=== PATIENT | male | born 1960 ===

== ENCOUNTER 2020-08-09 13:51 | Inpatient (IN) | payer MEDICARE, OTHER ==
[~2020-08-09] VITALS: Ht 172.7 cm; Wt 79.8 kg
[2020-08-09] MEDS ORDERED: MAGNESIUM HYDROXIDE 30 ML LIQUID UDC PO PRN (16:30)
[2020-08-09] MEDS ORDERED: ACETAMINOPHEN 325 MG TABLET PO PRN (16:30)
[2020-08-09] MEDS ORDERED: LORAZEPAM 1 MG TABLET PO PRN (16:30)
[2020-08-09] MEDS ORDERED: TEMAZEPAM 7.5 MG CAPSULE PO PRN (16:30)
[2020-08-09] MEDS ORDERED: MAG HYDROX/AL HYDROX/SIMETH 30 ML LIQUID UDC PO PRN (16:30)
[2020-08-09 16:37] VITALS: BP 129/92
[2020-08-09 20:37] VITALS: BP 122/86
[2020-08-10 07:30] VITALS: BP 117/76
[2020-08-10 15:08] VITALS: BP 119/71
[2020-08-10 15:19] LABS: BASOPHILS % (AUTO) 0.6 % (0.0-2.0); EOSINOPHILS # (AUTO) 0.1 K/uL (0.0-0.7); EOSINOPHILS % (AUTO) 1.3 % (0.0-7.0); HEMATOCRIT 45.9 % (36.7-47.1); HEMOGLOBIN 15.6 g/dL (12.5-16.3); LYMPHOCYTES # (AUTO) 2.2 K/uL (20.0-40.0); LYMPHOCYTES % (AUTO) 30.8 % (20.5-51.5); MEAN CORPUSCULAR HEMOGLOBIN 29.4 uug (23.8-33.4); MEAN CORPUSCULAR HGB CONC 34 g/dL (32.5-36.3); MEAN CORPUSCULAR VOLUME 86.6 fL (73.0-96.2); MONOCYTES # (AUTO) 0.6 K/uL (2.0-10.0); MONOCYTES % (AUTO) 8.7 % (0.0-11.0); NEUTROPHILS # (AUTO) 4.1 K/uL (1.8-8.9); NEUTROPHILS % (AUTO) 58.6 % (38.5-71.5); PLATELET COUNT (AUTO) 291 K/uL (152-348); RED BLOOD CELL COUNT(AUTO) 5.31 MIL/uL (4.06-5.63); WHITE BLOOD COUNT (AUTO) 7.1 K/uL (3.6-10.2)
[2020-08-10 15:33] LABS: BILIRUBIN,TOTAL 0.4 mg/dL (0.2-1.0); CREATININE 1.1 mg/dL (0.6-1.3); MAGNESIUM 2.1 mg/dL (1.8-2.4); PHOSPHOROUS 4.3 mg/dL (2.5-4.9); POTASSIUM 4.1 mmol/L (3.5-5.1); TOTAL PROTEIN, SERUM 8.1 g/dL (6.4-8.2)
[2020-08-10 20:21] VITALS: BP 143/81
[2020-08-11 07:30] VITALS: BP 106/67
[2020-08-11] MEDS: DIVALPROEX 500 MG TABLET.DR PO SCH ×3 (08:31→16:56)
[2020-08-11] MEDS ORDERED: SERTRALINE HCL 50 MG TABLET PO SCH (09:00)
[2020-08-11] MEDS ORDERED: DIVALPROEX 250 MG TABLET.DR PO SCH (09:00)
[2020-08-11 16:00] VITALS: BP 109/60
[2020-08-11 20:10] VITALS: BP 102/63
[2020-08-12 07:30] VITALS: BP 133/77
[2020-08-12] MEDS: DIVALPROEX 500 MG TABLET.DR PO SCH ×3 (09:04→17:44)
[2020-08-12] MEDS: SERTRALINE HCL 100 MG TABLET PO SCH (09:04)
[2020-08-12 17:06] VITALS: BP 131/79
[2020-08-12 20:11] VITALS: BP 115/72
[2020-08-13 07:30] VITALS: BP 122/68
[2020-08-13] MEDS: SERTRALINE HCL 100 MG TABLET PO SCH (08:37)
[2020-08-13] MEDS: DIVALPROEX 500 MG TABLET.DR PO SCH ×3 (08:37→16:15)
[2020-08-13 17:16] VITALS: BP 103/70
[2020-08-13 20:00] VITALS: BP 117/50
[2020-08-14 07:30] VITALS: BP 115/70
[2020-08-14] MEDS: DIVALPROEX 500 MG TABLET.DR PO SCH ×3 (10:43→17:50)
[2020-08-14] MEDS: SERTRALINE HCL 100 MG TABLET PO SCH (10:43)
[2020-08-14] MEDS: VITAMINS A AND D OINT TP SCH (10:46)
[2020-08-14 15:39] VITALS: BP 118/78
[2020-08-14 20:00] VITALS: BP 118/66
[2020-08-15 07:30] VITALS: BP 120/72
[2020-08-15] MEDS: SERTRALINE HCL 100 MG TABLET PO SCH (08:52)
[2020-08-15] MEDS: DIVALPROEX 500 MG TABLET.DR PO SCH ×3 (08:52→16:53)
[2020-08-15] MEDS: VITAMINS A AND D OINT TP SCH (08:53)
[2020-08-15 15:22] VITALS: BP 117/69
[2020-08-15 20:08] VITALS: BP 118/64
[2020-08-16 07:30] VITALS: BP 112/58
[2020-08-16] MEDS: SERTRALINE HCL 100 MG TABLET PO SCH (08:37)
[2020-08-16] MEDS: DIVALPROEX 500 MG TABLET.DR PO SCH ×3 (08:37→17:02)
[2020-08-16] MEDS: VITAMINS A AND D OINT TP SCH (08:38)
[2020-08-16 15:53] VITALS: BP 120/71
[2020-08-16 20:17] VITALS: BP 123/62
[2020-08-17] MEDS: DIVALPROEX 500 MG TABLET.DR PO SCH ×3 (10:07→16:38)
[2020-08-17] MEDS: SERTRALINE HCL 100 MG TABLET PO SCH (10:07)
[2020-08-17] MEDS: VITAMINS A AND D OINT TP SCH (10:07)
[2020-08-17 10:18] VITALS: BP 129/72
[2020-08-17 15:52] VITALS: BP 121/80
[2020-08-17 20:16] VITALS: BP 115/73
[2020-08-18 07:30] VITALS: BP 125/63
[2020-08-18] MEDS: DIVALPROEX 500 MG TABLET.DR PO SCH ×3 (08:52→17:06)
[2020-08-18] MEDS: SERTRALINE HCL 100 MG TABLET PO SCH (08:52)
[2020-08-18] MEDS: VITAMINS A AND D OINT TP SCH (08:53)
[2020-08-18 16:00] VITALS: BP 114/67
[2020-08-18 20:21] VITALS: BP 111/59
[2020-08-19 07:30] VITALS: BP 118/68
[2020-08-19] MEDS: DIVALPROEX 500 MG TABLET.DR PO SCH ×3 (08:22→17:13)
[2020-08-19] MEDS: VITAMINS A AND D OINT TP SCH (08:22)
[2020-08-19] MEDS: SERTRALINE HCL 100 MG TABLET PO SCH (08:22)
[2020-08-19 16:00] VITALS: BP 107/70
[2020-08-19 20:04] VITALS: BP 104/61
[2020-08-20 07:30] VITALS: BP 123/80
[2020-08-20] MEDS: SERTRALINE HCL 100 MG TABLET PO SCH (08:51)
[2020-08-20] MEDS: DIVALPROEX 500 MG TABLET.DR PO SCH ×2 (08:51→12:27)
[2020-08-20] MEDS: VITAMINS A AND D OINT TP SCH (08:52)
== END 2020-08-20 15:00 | DRG 885 ==
LOC: ER 13:51 → GPS 15:55
PROVIDERS: ADMIT Psychiatry & Neurology Psychiatry; ATTEND Internal Medicine
PROC: 0HBRXZZ Excision of Toe Nail, External Approach (ICD-10-PCS; principal; 2020-08-12)
DX: F31.30 Bipolar disorder, current episode depressed, mild or moderate severity, unspecified (principal); R45.851 Suicidal ideations; F23 Brief psychotic disorder; Z59.0 Homelessness; E03.9 Hypothyroidism, unspecified; Z85.038 Personal history of other malignant neoplasm of large intestine; L85.3 Xerosis cutis; M20.41 Other hammer toe(s) (acquired), right foot; M20.42 Other hammer toe(s) (acquired), left foot; Z90.49 Acquired absence of other specified parts of digestive tract; Z20.822 Contact with and (suspected) exposure to COVID-19; F19.10 Other psychoactive substance abuse, uncomplicated; L60.3 Nail dystrophy; Z91.5 Personal history of self-harm
CPT/HCPCS: 36415; 83735; 84100; 84443; 85025; 93005; A4663